=== PATIENT | male | born 1950 | race Asian ===

== ENCOUNTER 2019-04-01 09:35 | Emergency (ER) | payer OTHER ==
[~2019-04-01] VITALS: Ht 170.2 cm; Wt 77.1 kg
[2019-04-01 09:43] VITALS: BP_SYST 141
[2019-04-01] MEDS ORDERED: METO25TA3 PO (09:58)
[2019-04-01] MEDS ORDERED: FOLI-43 PO (09:58)
[2019-04-01] MEDS ORDERED: LIP10 PO (09:58)
[2019-04-01] MEDS ORDERED: LOSA25TA3 PO (09:58)
[2019-04-01] MEDS ORDERED: OMEG-98 PO (09:58)
[2019-04-01] MEDS ORDERED: CLOP300T2 PO (09:58)
[2019-04-01] MEDS ORDERED: LORA1TAB PO (09:58)
[2019-04-01 10:19] LABS: BASOPHILS % (AUTO) 0.5 % (0.0-2.0); EOSINOPHILS % (AUTO) 0.8 % (0.0-4.0); HEMATOCRIT 41.8 % (36-54); LYMPHOCYTES # (AUTO) 1.3 K/uL (1.0-5.5); LYMPHOCYTES % (AUTO) 35.1 % (20.5-51.5); MEAN CORPUSCULAR HEMOGLOBIN 30 pg (27-31); MEAN CORPUSCULAR HGB CONC 33 % (32-36); MEAN CORPUSCULAR VOLUME 91 fL (79.0-98.0); MONOCYTES # (AUTO) 0.3 K/uL (0.0-1.0); MONOCYTES % (AUTO) 8.1 % (1.7-9.3); NEUTROPHILS # (AUTO) 2.1 K/uL (1.8-7.7); NEUTROPHILS % (AUTO) 55.5 % (40.0-70.0); PLATELET COUNT (AUTO) 142 K/uL (130-430); RED BLOOD CELL COUNT(AUTO) 4.59 MIL/uL (4.2-6.2); RED CELL DISTRIBUTION WIDTH 13.8 % (9.0-15.0); WHITE BLOOD COUNT (AUTO) 3.7 K/uL (4.8-10.8)
[2019-04-01 10:36] LABS: CALCIUM 8.8 mg/dL (8.4-11.0); CREATININE 0.8 mg/dL (0.55-1.30); POTASSIUM 3.5 mmol/L (3.5-5.1)
[2019-04-01 10:40] LABS: ALBUMIN 3.4 g/dL (3.4-4.8); TOTAL BILIRUBIN 0.9 mg/dL (0.0-1.0)
[2019-04-01 12:00] VITALS: BP_SYST 136
== END 2019-04-01 11:59 | disposition home or self-care (01) ==
LOC: SED 09:35
DX: R42 Dizziness and giddiness (principal); R20.2 Paresthesia of skin; I10 Essential (primary) hypertension; Z86.79 Personal history of other diseases of the circulatory system; Z79.899 Other long term (current) drug therapy
CPT/HCPCS: 36415; 70450-TC; 80053; 81002; 84484; 85025; 85610-TC; 85730-TC; 93005; 99284

== ENCOUNTER 2022-12-26 18:30 | Emergency (ER) | payer OTHER, MEDICARE ==
[~2022-12-26] VITALS: Ht 167.6 cm; Wt 68.0 kg
[~2022-12-26 18:30] MED LIST: CLOP300T2 PO; FOLI-43 PO; LIP10 PO; LORA1TAB PO; LOSA25TA3 PO; METO25TA3 PO; OMEG-220 PO
[2022-12-26 18:38] VITALS: BP_SYST 154
[2022-12-26] MEDS ORDERED: ACETAMINOPHEN 325 MG TABLET PO ONE (18:45)
[2022-12-26 18:47] VITALS: BP_SYST 154
[2022-12-26] MEDS: MECLIZINE HCL 25 MG TABLET (ANITVERT) PO ONE ×2 (18:59→19:00)
[2022-12-26 19:11] LABS: BASOPHILS % (AUTO) 0.8 % (0.0-2.0); EOSINOPHILS # (AUTO) 0.1 K/uL (0.0-0.4); EOSINOPHILS % (AUTO) 1.1 % (0.0-4.0); HEMATOCRIT 40.1 % (36-54); HEMOGLOBIN 13.4 g/dL (14.0-18.0); LYMPHOCYTES # (AUTO) 2.2 K/uL (1.0-5.5); LYMPHOCYTES % (AUTO) 40.5 % (20.5-51.5); MEAN CORPUSCULAR HEMOGLOBIN 30 pg (27-31); MEAN CORPUSCULAR HGB CONC 33 % (32-36); MEAN CORPUSCULAR VOLUME 89 fL (79.0-98.0); MONOCYTES # (AUTO) 0.5 K/uL (0.0-1.0); MONOCYTES % (AUTO) 9.4 % (1.7-9.3); NEUTROPHILS # (AUTO) 2.6 K/uL (1.8-7.7); NEUTROPHILS % (AUTO) 48.2 % (40.0-70.0); PLATELET COUNT (AUTO) 135 K/uL (130-430); RED BLOOD CELL COUNT(AUTO) 4.49 MIL/uL (4.2-6.2); RED CELL DISTRIBUTION WIDTH 13.9 % (9.0-15.0); WHITE BLOOD COUNT (AUTO) 5.4 K/uL (4.8-10.8)
[2022-12-26 19:25] LABS: ALANINE AMINOTRANSFERASE 29 U/L (12-78); ALBUMIN 3.1 g/dL (3.4-4.8); ANION GAP 5 (5-15); ASPARTATE AMINOTRANSFERASE 21 U/L (10-37); CALCIUM 8.2 mg/dL (8.4-11.0); CHLORIDE 104 mmol/L (98-107); CREATININE 0.86 mg/dL (0.55-1.30); GLUCOSE 111 mg/dL (70-99); TOTAL BILIRUBIN 0.5 mg/dL (0.0-1.0); UREA NITROGEN, BLOOD 19 mg/dL (8-21)
== END 2022-12-26 19:47 | disposition home or self-care (01) ==
LOC: SED 18:30
DX: R51.9 Headache, unspecified (principal); R42 Dizziness and giddiness; R20.2 Paresthesia of skin; I10 Essential (primary) hypertension; Z79.899 Other long term (current) drug therapy
CPT/HCPCS: 36415; 80053; 84484; 85025; 93005; 99284; J8597